=== PATIENT | female | born 1975 | race Hispanic/Latino ===

== ENCOUNTER 2020-07-17 05:30 | Emergency (ER) | payer BC ==
[2020-07-17 06:17] VITALS: BP 128/87
[2020-07-17 08:53] LABS: Basophils # (Auto) 0.1 K/mm3 (0.0-0.1); Basophils % (Auto) 0.6 % (0.0-1.8); Eosinophils # (Auto) 0.1 K/mm3 (0.0-0.4); Eosinophils % (Auto) 0.8 % (0.0-4.3); Hematocrit 44.8 % (30.3-42.9); Hemoglobin 15.1 gm/dl (10.1-14.3); Lymphocytes # (Auto) 1.1 K/mm3 (1.2-5.4); Lymphocytes % (Auto) 12.5 % (13.4-35.0); Mean Corpuscular HGB Conc 34 % (30-34); Mean Corpuscular Volume 89 fl (79-97); Monocytes # (Auto) 0.5 K/mm3 (0.0-0.8); Monocytes % (Auto) 5.8 % (0.0-7.3); Platelet Count 229 K/mm3 (140-440); Red Blood Count 5.04 M/mm3 (3.65-5.03)
[2020-07-17 09:12] LABS: Alanine Aminotransferase 14 units/L (7-56); BUN/Creatinine Ratio 10; Blood Urea Nitrogen 8 mg/dL (7-17); Calcium 8.9 mg/dL (8.4-10.2); Hemolysis Index 4
--- NOTE | 2020-07-17 09:53 | Emergency Department Report ---
ED Extremity Problem HPI - General Chief complaint: Extremity Problem,Nontraumatic Stated complaint: SHORTNESS OF BREATH, NUMBNESS RIGHT ARM Time Seen by Provider: 07/17/20 07:58 Source: patient Mode of arrival: Ambulatory Limitations: No Limitations - History of Present Illness Initial comments: The patient was evaluated in the emergency department for symptoms described in the history of present illness. He/she was evaluated in the context of the g lobal COVID-19 pandemic, which necessitated consideration that the patient might be at risk for infection with the virus that causes COVID-19. Institutional protocols and algorithms that pertain to the evaluation of patients at risk for COVID-19 are in a state of rapid change based on information released by regulatory bodies including the CDC and federal and state organizations. These policies and algorithms were followed during the patient's care in the emergency department. Please note that these policies, procedures and recommendations changed on a rapid basis. 45-year-old female presents to the emergency room complaining of left shoulder pain and right arm pain x3 hours. Patient states she has these pains frequently. Patient states that she has been driving from [place] here in a truck and also had sex which made it worse. Patient does admit that she smokes cigarettes. She states that she took 5 baby aspirin prior to arrival. She states she did take 2 Tylenol and one muscle relaxant. Patient denies any history of cancer control. She does states she has an IUD in place. She has a past medical history of GERD and inert PVCs. Patient denies any headache no fever no chills. Patient states the pain makes her sweat at times. She reports she has a history of DDD of the neck. And moving makes it worse in certain positions. MD Complaint: extremity pain, joint paint Onset/Timin -: days(s) Location: left, right, upper extremity History of Same: Yes -: Yes arthralgia Severity scale (0 -10): 8 Quality: aching Consistency: constant Improves with: nothing Worsens with: other (Certain movements) Associated Symptoms: denies other symptoms, arthralgias. denies: chest pain, shortness of breath, fever, myalgias - Related Data Allergies Allergy/AdvReac Type Severity Reaction Status Date / Time No Known Allergies Allergy Unverified 07/17/20 06:02 ED Review of Systems ROS: Stated complaint: SHORTNESS OF BREATH, NUMBNESS RIGHT ARM Other details as noted in HPI Comment: All other systems reviewed and negative ED Past Medical Hx - Past Medical History Previous Medical History?: No Additional medical history: endometriosis - Surgical History Past Surgical History?: Yes Additional Surgical History: laproscopy - Social History Smoking Status: Current Every Day Smoker Substance Use Type: Alcohol ED Physical Exam - General Limitations: No Limitations General appearance: alert, in no apparent distress - Head Head exam: Present: atraumatic, normocephalic - Eye Eye exam: Present: normal appearance - ENT ENT exam: Present: mucous membranes moist - Neck Neck exam: Present: normal inspection, full ROM - Respiratory Respiratory exam: Present: accessory muscle use - Extremities Exam Extremities exam: Present: full ROM. Absent: tenderness - Back Exam Back exam: Present: normal inspection, full ROM - Neurological Exam Neurological exam: Present: alert, oriented X3, normal gait - Psychiatric Psychiatric exam: Present: normal affect, normal mood - Skin Skin exam: Present: warm, dry, intact, normal color. Absent: rash ED Course Vital Signs 07/17/20 06:02 Temperature 97.8 F Pulse Rate 82 Respiratory 18 Rate Blood Pressure 128/87 O2 Sat by Pulse 100 Oximetry ED Medical Decision Making - Lab Data Result diagrams: 07/17/20 08:17 07/17/20 08:17 - Medical Decision Making 45-year-old female presents to the emergency room complaining of left shoulder pain and right arm pain x3 hours. Patient states she has these pains frequently. Patient states that she has been driving from [place] here in a truck and also had sex which made it worse. Patient does admit that she smokes cigarettes. She states that she took 5 baby aspirin prior to arrival. She states she did take 2 Tylenol and one muscle relaxant. Patient denies any history of cancer control. She does states she has an IUD in place. She has a past medical history of GERD and inert PVCs. Patient denies any headache no fever no chills. Patient states the pain makes her sweat at times. She reports she has a history of DDD of the neck. And moving makes it worse in certain positions. Labs are done are on actionable. EKG is stable. D-dimer is negative. Patient will be discharged home to take her Tylenol and muscle relaxant as she has been taking. Patient should follow-up with her primary care provider. Critical care attestation.: If time is entered above; I have spent that time in minutes in the direct care of this critically ill patient, excluding procedure time. ED Disposition Clinical Impression: Chronic pain of right upper extremity, Chronic pain of left upper extremity Disposition: - TO HOME OR SELFCARE Is pt being admited?: No Does the pt Need Aspirin: No Condition: Stable Additional Instructions: Labs are stable and nonactionable. I would like for you to continue taking your pain medications and your muscle relaxant as prescribed by your primary care provider. I have listed several doctors below if you would like to follow-up with a local provider. Referrals: PRIMARY MD ETHAN [Primary Care Provider] - 3-5 Days ANAND JOINER MD [Staff Physician] - 3-5 Days YANICK PAYTON FNP [Referring] - 3-5 Days ANGELITO JAIME MD [Staff Physician] - 3-5 Days [facility] [Provider Group] - 3-5 Days [facility] [Provider Group] - 3-5 Days Forms: Work/School Release Form(ED)
== END 2020-07-17 10:04 | disposition home or self-care (01) ==
LOC: ED 05:30
DX: M79.601 Pain in right arm (principal); M79.602 Pain in left arm; G89.29 Other chronic pain; F17.200 Nicotine dependence, unspecified, uncomplicated; Z79.899 Other long term (current) drug therapy; Z98.890 Other specified postprocedural states
CPT/HCPCS: 36415; 80053; 85025; 85379; 93005